=== PATIENT | female | born 1935 | race Caucasian/White ===

== ENCOUNTER → 2016-04-25 | Outpatient (CLI) | payer MEDICARE ==
[2016-04-25 17:49] LABS: ALBUMIN 3.7 GM/DL (3.2-5.2); ALBUMIN/GLOBULIN RATIO 1.28 (1.00-1.93); ALKALINE PHOSPHATASE 45 U/L (45-117); ALT/SGPT 28 U/L (12-78); ANION GAP 8 MEQ/L (8-16); AST/SGOT 23 U/L (15-37); BILIRUBIN,TOTAL 0.6 MG/DL (0.2-1.0); BLOOD UREA NITROGEN 19 MG/DL (7-18); CALCIUM LEVEL 9.4 MG/DL (8.8-10.2); CARBON DIOXIDE LEVEL 28 MEQ/L (21-32); CHLORIDE LEVEL 106 MEQ/L (98-107); CHOLESTEROL LEVEL 162 MG/DL (<200); CREATININE FOR GFR 0.71 MG/DL (0.55-1.02); GLOMERULAR FILTRATION RATE > 60.0 (>32); GLUCOSE, FASTING 91 MG/DL (83-110); POTASSIUM SERUM 4.8 MEQ/L (3.5-5.1); SODIUM LEVEL 142 MEQ/L (136-145); TOTAL PROTEIN 6.6 GM/DL (6.4-8.2); TRIGLYCERIDES LEVEL 74 MG/DL (<150)
== END | disposition home or self-care (01) ==
LOC: M WUC 12:22
PROVIDERS: ATTEND Physician Assistant
DX: I11.9 Hypertensive heart disease without heart failure (principal); E78.00 Pure hypercholesterolemia, unspecified

== ENCOUNTER → 2016-11-28 | Outpatient (CLI) | payer MEDICARE ==
[2016-11-28 18:34] LABS: ALBUMIN 3.5 GM/DL (3.2-5.2); ALBUMIN/GLOBULIN RATIO 1.21 (1.00-1.93); ALKALINE PHOSPHATASE 46 U/L (45-117); ALT/SGPT 28 U/L (12-78); ANION GAP 9 MEQ/L (8-16); AST/SGOT 19 U/L (15-37); BILIRUBIN,TOTAL 0.6 MG/DL (0.2-1.0); BLOOD UREA NITROGEN 16 MG/DL (7-18); CARBON DIOXIDE LEVEL 27 MEQ/L (21-32); CHLORIDE LEVEL 109 MEQ/L (98-107); CREATININE FOR GFR 0.63 MG/DL (0.55-1.02); GLOMERULAR FILTRATION RATE > 60.0 (>32); GLUCOSE, FASTING 111 MG/DL (83-110); POTASSIUM SERUM 4.6 MEQ/L (3.5-5.1); SODIUM LEVEL 145 MEQ/L (136-145); TOTAL PROTEIN 6.4 GM/DL (6.4-8.2)
== END ==
LOC: M WUC 13:02
PROVIDERS: ATTEND Physician Assistant
DX: I11.9 Hypertensive heart disease without heart failure (principal); E78.00 Pure hypercholesterolemia, unspecified

== ENCOUNTER → 2017-06-03 | Outpatient (CLI) | payer MEDICARE ==
[2017-06-03 10:46] LABS: ALBUMIN 3.8 GM/DL (3.2-5.2); ALBUMIN/GLOBULIN RATIO 1.46 (1.00-1.93); ALKALINE PHOSPHATASE 52 U/L (45-117); ALT/SGPT 28 U/L (12-78); ANION GAP 7 MEQ/L (8-16); AST/SGOT 19 U/L (7-37); BILIRUBIN,TOTAL 0.7 MG/DL (0.2-1.0); BLOOD UREA NITROGEN 18 MG/DL (7-18); CALCIUM LEVEL 9.2 MG/DL (8.8-10.2); CARBON DIOXIDE LEVEL 29 MEQ/L (21-32); CHLORIDE LEVEL 106 MEQ/L (98-107); CHOLESTEROL LEVEL 159 MG/DL (<200); CHOLESTEROL RISK RATIO 2.064 (<5); CREATININE FOR GFR 0.61 MG/DL (0.55-1.30); GLOMERULAR FILTRATION RATE > 60.0 (>32); GLUCOSE, FASTING 99 MG/DL (70-100); HDL CHOLESTEROL 77 MG/DL (>40); LDL CHOLESTEROL 69.6 MG/DL (<100); NON-HDL-C 82 MG/DL; POTASSIUM SERUM 4.1 MEQ/L (3.5-5.1); SODIUM LEVEL 142 MEQ/L (136-145); TOTAL PROTEIN 6.4 GM/DL (6.4-8.2); TRIGLYCERIDES LEVEL 62 MG/DL (<150)
== END ==
LOC: M WUC 08:24
DX: I11.9 Hypertensive heart disease without heart failure (principal); E78.00 Pure hypercholesterolemia, unspecified
CPT/HCPCS: 80053

== ENCOUNTER → 2018-05-01 | Outpatient (CLI) | payer MEDICARE ==
[2018-05-01 15:50] LABS: BASO # 0.1 10^3/uL (0.0-0.2); BASO % 0.6 % (0.0-1.0); EOS # 0.1 10^3/uL (0.0-0.50); EOS % 0.6 % (0.0-3.0); HEMATOCRIT 37.6 % (36.0-47.0); HEMOGLOBIN 12.4 g/dl (12.0-15.5); LYMPH # 2.6 10^3/uL (1.5-4.5); MEAN CORPUSCULAR HEMOGLOBIN 33.1 pg (27.0-33.0); MEAN CORPUSCULAR VOLUME 100.3 fl (80.0-96.0); MONO # 0.7 10^3/uL (0.0-0.8); MONO % 8.8 % (0.0-5.0); NEUTROPHILS # 4.7 10^3/uL (1.8-7.7); NEUTROPHILS % 57.8 % (36.0-66.0); PLATELET COUNT, AUTOMATED 182 10^3/uL (150-450); RED BLOOD COUNT 3.75 10^6/uL (4.00-5.40); WHITE BLOOD COUNT 8.2 10^3/uL (4.0-10.0)
[2018-05-01 16:10] LABS: BLOOD UREA NITROGEN 21 MG/DL (7-18); CARBON DIOXIDE LEVEL 26 MEQ/L (21-32); CHLORIDE LEVEL 107 MEQ/L (98-107); CREATININE FOR GFR 0.62 MG/DL (0.55-1.30); GLOMERULAR FILTRATION RATE > 60.0 (>32); GLUCOSE, FASTING 148 MG/DL (70-100); POTASSIUM SERUM 4.2 MEQ/L (3.5-5.1); SODIUM LEVEL 141 MEQ/L (136-145)
== END ==
LOC: M WUC 13:41
PROVIDERS: ATTEND Internal Medicine Cardiovascular Disease
DX: I35.0 Nonrheumatic aortic (valve) stenosis (principal)

== ENCOUNTER → 2018-08-01 | Outpatient (REF) | payer MEDICARE ==
[2018-08-01 14:19] LABS: HEMATOCRIT 32.9 % (36.0-47.0); HEMOGLOBIN 10.3 g/dl (12.0-15.5); MEAN CORPUSCULAR HEMOGLOBIN 32.1 pg (27.0-33.0); MEAN CORPUSCULAR HGB CONC 31.3 g/dl (32.0-36.5); MEAN CORPUSCULAR VOLUME 102.5 fl (80.0-96.0); PLATELET COUNT, AUTOMATED 204 10^3/uL (150-450); RED BLOOD COUNT 3.21 10^6/uL (4.00-5.40); WHITE BLOOD COUNT 4.9 10^3/uL (4.0-10.0)
[2018-08-01 14:35] LABS: BLOOD UREA NITROGEN 15 MG/DL (7-18); CALCIUM LEVEL 8.9 MG/DL (8.8-10.2); CARBON DIOXIDE LEVEL 26 MEQ/L (21-32); CHLORIDE LEVEL 110 MEQ/L (98-107); CREATININE FOR GFR 0.59 MG/DL (0.55-1.30); GLOMERULAR FILTRATION RATE > 60.0 (>32); GLUCOSE, FASTING 145 MG/DL (70-100); POTASSIUM SERUM 4.1 MEQ/L (3.5-5.1); SODIUM LEVEL 142 MEQ/L (136-145)
== END ==
LOC: M LAB REF 13:02
PROVIDERS: ATTEND Family Medicine
DX: I25.10 Atherosclerotic heart disease of native coronary artery without angina pectoris (principal); Z95.1 Presence of aortocoronary bypass graft; I35.2 Nonrheumatic aortic (valve) stenosis with insufficiency

== ENCOUNTER → 2019-10-04 | Outpatient (CLI) | payer MEDICARE ==
[2019-10-04 13:48] LABS: ALBUMIN 3.6 GM/DL (3.2-5.2); ALT/SGPT 28 U/L (12-78); BILIRUBIN,TOTAL 0.5 MG/DL (0.2-1.0); BLOOD UREA NITROGEN 22 MG/DL (7-18); CALCIUM LEVEL 9.1 MG/DL (8.8-10.2); CARBON DIOXIDE LEVEL 26 MEQ/L (21-32); CHLORIDE LEVEL 111 MEQ/L (98-107); CHOLESTEROL LEVEL 148 MG/DL (<200); CHOLESTEROL RISK RATIO 2.387 (<5); CREATININE FOR GFR 0.63 MG/DL (0.55-1.30); GLOMERULAR FILTRATION RATE > 60.0 (>32); GLUCOSE, FASTING 101 MG/DL (70-100); HDL CHOLESTEROL 62 MG/DL (>40); LDL CHOLESTEROL 74 MG/DL (<100); NON-HDL-C 86 MG/DL; POTASSIUM SERUM 4.3 MEQ/L (3.5-5.1); SODIUM LEVEL 143 MEQ/L (136-145); TOTAL PROTEIN 6.3 GM/DL (6.4-8.2); TRIGLYCERIDES LEVEL 60 MG/DL (<150)
== END ==
LOC: M WUC 09:25
PROVIDERS: ATTEND Physician Assistant
DX: I25.10 Atherosclerotic heart disease of native coronary artery without angina pectoris (principal); I11.9 Hypertensive heart disease without heart failure; E78.00 Pure hypercholesterolemia, unspecified

== ENCOUNTER → 2020-03-04 | Outpatient (CLI) | payer SELFPAY | LOC: M LABCAHC 14:20 | PROVIDERS: ATTEND Pediatrics | DX: Z11.59 Encounter for screening for other viral diseases (principal) ==

== ENCOUNTER → 2021-05-20 | Outpatient (CLI) | payer MEDICARE ==
[2021-05-20 13:31] LABS: BLOOD UREA NITROGEN 20 MG/DL (7-18); CARBON DIOXIDE LEVEL 26 MEQ/L (21-32); CHLORIDE LEVEL 109 MEQ/L (98-107); CREATININE FOR GFR 0.92 MG/DL (0.55-1.30); GLOMERULAR FILTRATION RATE > 60.0 (>32); GLUCOSE, FASTING 164 MG/DL (70-100); POTASSIUM SERUM 4.6 MEQ/L (3.5-5.1); SODIUM LEVEL 144 MEQ/L (136-145)
== END ==
LOC: M WUC 09:57
PROVIDERS: ATTEND Physician Assistant
DX: I50.32 Chronic diastolic (congestive) heart failure (principal); E83.42 Hypomagnesemia

== ENCOUNTER → 2021-08-13 | Outpatient (REF) | payer MEDICARE ==
[2021-08-13 12:27] LABS: BLOOD UREA NITROGEN 15 MG/DL (7-18); CALCIUM LEVEL 9.8 MG/DL (8.8-10.2); CARBON DIOXIDE LEVEL 26 MEQ/L (21-32); CHLORIDE LEVEL 109 MEQ/L (98-107); CREATININE FOR GFR 0.79 MG/DL (0.55-1.30); GLOMERULAR FILTRATION RATE > 60.0 (>32); GLUCOSE, FASTING 130 MG/DL (70-100); POTASSIUM SERUM 4.9 MEQ/L (3.5-5.1); SODIUM LEVEL 143 MEQ/L (136-145)
== END ==
LOC: M WUC 11:30 → M LAB REF 11:30
PROVIDERS: ATTEND Physician Assistant
DX: I50.32 Chronic diastolic (congestive) heart failure (principal); E83.42 Hypomagnesemia

== ENCOUNTER 2022-08-16 00:31 | Emergency (ER) | payer MEDICARE ==
[~2022-08-16] VITALS: Ht 149.9 cm; Wt 61.0 kg
[2022-08-16 01:23] LABS: BASO % 0.5 % (0.0-1.0); EOS % 0.4 % (0.0-3.0); HEMATOCRIT 39.7 % (36.0-47.0); HEMOGLOBIN 13.3 g/dl (12.0-15.5); LYMPH # 2.7 10^3/uL (1.5-5.0); LYMPH % 33.8 % (24.0-44.0); MEAN CORPUSCULAR HEMOGLOBIN 32.5 pg (27.0-33.0); MEAN CORPUSCULAR HGB CONC 33.5 g/dl (32.0-36.5); MEAN CORPUSCULAR VOLUME 97.1 fl (80.0-96.0); MONO # 0.7 10^3/uL (0.0-0.8); MONO % 8.7 % (2.0-8.0); NEUTROPHILS # 4.4 10^3/uL (1.5-8.5); NEUTROPHILS % 56.2 % (36.0-66.0); PLATELET COUNT, AUTOMATED 208 10^3/uL (150-450); RED BLOOD COUNT 4.09 10^6/uL (4.00-5.40); WHITE BLOOD COUNT 7.8 10^3/uL (4.0-10.0)
[2022-08-16] MEDS ORDERED: ACETAMINOPHEN 1000MG 100ML IV BAG IV ONE (01:55)
[2022-08-16 01:56] LABS: LIPASE 26 U/L (12-53)
[2022-08-16 01:58] LABS: ALBUMIN 3.6 G/DL (3.2-5.2); ALKALINE PHOSPHATASE 75 U/L (46-116); ALT/SGPT 21 U/L (7.0-40); AST/SGOT 24 U/L (<34); BILIRUBIN,DIRECT 0.3 MG/DL (<0.4); BILIRUBIN,TOTAL 0.7 MG/DL (0.3-1.2); BLOOD UREA NITROGEN 21 MG/DL (9-23); CALCIUM LEVEL 9.6 MG/DL (8.3-10.6); CARBON DIOXIDE LEVEL 23 MMOL/L (20-31); CHLORIDE LEVEL 108 MMOL/L (98-107); CK-MB VALUE MASS 1.2 NG/ML (<3.6); CPK CREATINE PHOSPHOKINASE 72 U/L (34-145); CREATININE FOR GFR 0.92 MG/DL (0.55-1.30); GLOMERULAR FILTRATION RATE > 60.0 (>32); GLUCOSE, FASTING 110 MG/DL (74-106); MB/CK RELATIVE INDEX 1.66 (< OR =4); POTASSIUM SERUM 3.4 MMOL/L (3.5-5.1); SODIUM LEVEL 140 MMOL/L (136-145); TOTAL PROTEIN 6.1 G/DL (5.7-8.2)
[2022-08-16] MEDS ORDERED: ISOVUE-370 76% 100ML VIAL As Ordered ONE (02:11)
[2022-08-16 02:51] LABS: CK-MB VALUE MASS 1.2 NG/ML (<3.6)
[2022-08-16 02:53] LABS: MB/CK RELATIVE INDEX 1.64 (< OR =4)
[2022-08-16 04:00] VITALS: BP 149/68
== END 2022-08-16 04:52 | disposition home or self-care (01) ==
LOC: M ED 00:31 → EDBD 00:31 → M ED 04:52
DX: K43.9 Ventral hernia without obstruction or gangrene (principal); I25.10 Atherosclerotic heart disease of native coronary artery without angina pectoris; I48.91 Unspecified atrial fibrillation; Z88.0 Allergy status to penicillin
CPT/HCPCS: 71045; 74177; 80048; 80076; 81001; 82550; 82553; 83690; 84484; 85025; 93005; 93041; 94760; 96374; 99285; J0131; Q9967

== ENCOUNTER 2022-08-27 00:16 | Observation (INO) | payer MEDICARE ==
[~2022-08-27] VITALS: Ht 156.2 cm; Wt 66.9 kg
[2022-08-27 01:14] LABS: HEMATOCRIT 41.2 % (36.0-47.0); HEMOGLOBIN 13.9 g/dl (12.0-15.5); MEAN CORPUSCULAR HGB CONC 33.7 g/dl (32.0-36.5); MEAN CORPUSCULAR VOLUME 97.9 fl (80.0-96.0); PLATELET COUNT, AUTOMATED 236 10^3/uL (150-450); RED BLOOD COUNT 4.21 10^6/uL (4.00-5.40)
[2022-08-27 01:28] LABS: ETHYL ALCOHOL (ETHANOL) 0.005 % (0.000-0.010)
[2022-08-27 01:30] LABS: ACETAMINOPHEN LEVEL < 2.0 UG/ML (10.0-20.0); ALBUMIN 3.6 G/DL (3.2-5.2); ALKALINE PHOSPHATASE 70 U/L (46-116); ALT/SGPT 20 U/L (7.0-40); AST/SGOT 18 U/L (<34); BILIRUBIN,DIRECT 0.3 MG/DL (<0.4); BILIRUBIN,TOTAL 0.7 MG/DL (0.3-1.2); BLOOD UREA NITROGEN 12 MG/DL (9-23); CALCIUM LEVEL 9.4 MG/DL (8.3-10.6); CARBON DIOXIDE LEVEL 24 MMOL/L (20-31); CHLORIDE LEVEL 110 MMOL/L (98-107); CREATININE FOR GFR 0.75 MG/DL (0.55-1.30); GLOMERULAR FILTRATION RATE > 60.0 (>32); GLUCOSE, FASTING 126 MG/DL (74-106); POTASSIUM SERUM 3.9 MMOL/L (3.5-5.1); SALICYLATE LEVEL < 3.0 MG/DL (<30); SODIUM LEVEL 143 MMOL/L (136-145)
[2022-08-27 01:32] LABS: THYROID STIMULATING HORMONE 1.481 uIU/ML (0.55-4.78)
[2022-08-27] MEDS ORDERED: RAMI1CAP24 PO (08:15)
[2022-08-27] MEDS ORDERED: ASPI81CH33 PO (08:15)
[2022-08-27] MEDS ORDERED: TORS5TAB2 PO (08:15)
[2022-08-27] MEDS ORDERED: ATOR1TAB19 PO (08:15)
[2022-08-27] MEDS ORDERED: FLUO10CA18 PO (08:15)
[2022-08-27] MEDS ORDERED: HOME MED LIST COMPLETE! XX SCH (08:20)
[2022-08-27] MEDS ORDERED: ramipriL 5 MG CAP PO SCH (09:00)
[2022-08-27] MEDS ORDERED: ASPIRIN 81MG CHEW TABLET PO SCH (09:00)
[2022-08-27] MEDS ORDERED: TORSEMIDE 10 MG TABLET PO SCH (09:00)
[2022-08-27] MEDS ORDERED: FLUoxetine 10 MG CAP PO SCH (09:00)
[2022-08-27 11:31] LABS: AMPHETAMINES LEVEL URINE NEGATIVE (NEGATIVE); BARBITURATES URINE NEGATIVE (NEGATIVE); BENZODIAZEPINES URINE NEGATIVE (NEGATIVE)
[2022-08-27 11:32] LABS: CANNABINOIDS URINE NEGATIVE (NEGATIVE); COCAINE METABOLITE URINE NEGATIVE (NEGATIVE); METHADONE URINE NEGATIVE (NEGATIVE); OPIATES URINE NEGATIVE (NEGATIVE); PHENCYCLIDINE URINE NEGATIVE (NEGATIVE)
[2022-08-27 17:35] VITALS: BP 140/55; TEMP 97.9; O2SAT 99
[2022-08-27] MEDS: ATORVASTATIN 10 MG TAB PO SCH (20:31)
[2022-08-27] MEDS: NYSTATIN 100,000 UNITS/GM TOPICAL PWD 15GM TOP SCH (20:32)
[2022-08-27 20:40] VITALS: BP 139/56; TEMP 97.9; O2SAT 97
[2022-08-27] MEDS ORDERED: ATORVASTATIN 10 MG TAB PO SCH (21:00)
[2022-08-28 05:10] VITALS: BP 136/62; TEMP 97.9; O2SAT 97
[2022-08-28 06:25] LABS: HEMATOCRIT 37.3 % (36.0-47.0); HEMOGLOBIN 12.3 g/dl (12.0-15.5); MEAN CORPUSCULAR HEMOGLOBIN 32.4 pg (27.0-33.0); MEAN CORPUSCULAR VOLUME 98.2 fl (80.0-96.0); PLATELET COUNT, AUTOMATED 203 10^3/uL (150-450)
[2022-08-28 06:58] LABS: BLOOD UREA NITROGEN 13 MG/DL (9-23); CALCIUM LEVEL 8.8 MG/DL (8.3-10.6); CARBON DIOXIDE LEVEL 27 MMOL/L (20-31); CHLORIDE LEVEL 111 MMOL/L (98-107); CREATININE FOR GFR 0.65 MG/DL (0.55-1.30); GLOMERULAR FILTRATION RATE > 60.0 (>32); GLUCOSE, FASTING 100 MG/DL (74-106); POTASSIUM SERUM 3.8 MMOL/L (3.5-5.1); SODIUM LEVEL 145 MMOL/L (136-145)
[2022-08-28] MEDS: TORSEMIDE 10 MG TABLET PO SCH ×2 (09:00→09:19)
[2022-08-28] MEDS: FLUoxetine 10 MG CAP PO SCH ×2 (09:00→09:18)
[2022-08-28] MEDS: ENOXAPARIN 40MG/0.4ML SYRINGE (J1650 PER 10MG) SC SCH (09:17)
[2022-08-28] MEDS: ASPIRIN 81MG CHEW TABLET PO SCH (09:18)
[2022-08-28] MEDS: NYSTATIN 100,000 UNITS/GM TOPICAL PWD 15GM TOP SCH ×2 (09:19→21:10)
[2022-08-28] MEDS: ramipriL 5 MG CAP PO SCH (09:19)
[2022-08-28 10:35] LABS: FOLATE 14.29 NG/ML (>5.4); VITAMIN B12 LEVEL 465 PG/ML (211-911)
[2022-08-28 10:36] LABS: FREE T4 0.92 NG/DL (0.89-1.76)
[2022-08-28 14:00] VITALS: BP 134/66; TEMP 98.2; O2SAT 99
[2022-08-28] MEDS: LORazepam 1 MG TAB PO PRN (14:28)
[2022-08-28] MEDS: ATORVASTATIN 10 MG TAB PO SCH (21:09)
[2022-08-28 21:20] VITALS: BP 151/76; TEMP 97.9; O2SAT 97
[2022-08-29 05:50] VITALS: BP 148/72; TEMP 97.9; O2SAT 98
[2022-08-29 06:17] LABS: HEMATOCRIT 38.5 % (36.0-47.0); HEMOGLOBIN 12.4 g/dl (12.0-15.5); MEAN CORPUSCULAR HEMOGLOBIN 32.2 pg (27.0-33.0); MEAN CORPUSCULAR HGB CONC 32.2 g/dl (32.0-36.5); PLATELET COUNT, AUTOMATED 190 10^3/uL (150-450); RED BLOOD COUNT 3.85 10^6/uL (4.00-5.40); WHITE BLOOD COUNT 4.9 10^3/uL (4.0-10.0)
[2022-08-29 06:39] LABS: BLOOD UREA NITROGEN 12 MG/DL (9-23); CALCIUM LEVEL 8.6 MG/DL (8.3-10.6); CARBON DIOXIDE LEVEL 27 MMOL/L (20-31); CHLORIDE LEVEL 108 MMOL/L (98-107); CREATININE FOR GFR 0.66 MG/DL (0.55-1.30); GLOMERULAR FILTRATION RATE > 60.0 (>32); GLUCOSE, FASTING 95 MG/DL (74-106); SODIUM LEVEL 141 MMOL/L (136-145)
[2022-08-29] MEDS: ASPIRIN 81MG CHEW TABLET PO SCH (08:31)
[2022-08-29] MEDS: TORSEMIDE 10 MG TABLET PO SCH (08:31)
[2022-08-29] MEDS: FLUoxetine 10 MG CAP PO SCH (08:31)
[2022-08-29] MEDS: ENOXAPARIN 40MG/0.4ML SYRINGE (J1650 PER 10MG) SC SCH (08:31)
[2022-08-29] MEDS: NYSTATIN 100,000 UNITS/GM TOPICAL PWD 15GM TOP SCH ×2 (08:32→19:54)
[2022-08-29] MEDS: ramipriL 5 MG CAP PO SCH (08:33)
[2022-08-29 14:00] VITALS: BP 130/58; TEMP 97.5; O2SAT 98
[2022-08-29] MEDS: LORazepam 1 MG TAB PO PRN (19:53)
[2022-08-29] MEDS: ATORVASTATIN 10 MG TAB PO SCH (19:54)
[2022-08-29 21:00] VITALS: BP 135/65; TEMP 97.9; O2SAT 98
[2022-08-30] MEDS: LORazepam 1 MG TAB PO PRN ×2 (04:15→19:55)
[2022-08-30 05:40] VITALS: BP 112/57; TEMP 97.7; O2SAT 97
[2022-08-30 06:18] LABS: HEMATOCRIT 36.7 % (36.0-47.0); HEMOGLOBIN 12.1 g/dl (12.0-15.5); MEAN CORPUSCULAR HEMOGLOBIN 32.4 pg (27.0-33.0); MEAN CORPUSCULAR VOLUME 98.4 fl (80.0-96.0); PLATELET COUNT, AUTOMATED 176 10^3/uL (150-450); RED BLOOD COUNT 3.73 10^6/uL (4.00-5.40); WHITE BLOOD COUNT 4.7 10^3/uL (4.0-10.0)
[2022-08-30 06:52] LABS: BLOOD UREA NITROGEN 16 MG/DL (9-23); CALCIUM LEVEL 8.6 MG/DL (8.3-10.6); CARBON DIOXIDE LEVEL 28 MMOL/L (20-31); CHLORIDE LEVEL 107 MMOL/L (98-107); CREATININE FOR GFR 0.72 MG/DL (0.55-1.30); GLOMERULAR FILTRATION RATE > 60.0 (>32); GLUCOSE, FASTING 96 MG/DL (74-106); POTASSIUM SERUM 3.7 MMOL/L (3.5-5.1); SODIUM LEVEL 142 MMOL/L (136-145)
[2022-08-30] MEDS: ENOXAPARIN 40MG/0.4ML SYRINGE (J1650 PER 10MG) SC SCH (08:48)
[2022-08-30] MEDS: NYSTATIN 100,000 UNITS/GM TOPICAL PWD 15GM TOP SCH ×2 (08:48→19:56)
[2022-08-30] MEDS: TORSEMIDE 10 MG TABLET PO SCH (08:48)
[2022-08-30] MEDS: FLUoxetine 10 MG CAP PO SCH (08:48)
[2022-08-30] MEDS: ASPIRIN 81MG CHEW TABLET PO SCH (08:50)
[2022-08-30] MEDS: ramipriL 5 MG CAP PO SCH (09:00)
[2022-08-30 14:00] VITALS: BP 106/51; TEMP 97.7; O2SAT 97
[2022-08-30] MEDS: ATORVASTATIN 10 MG TAB PO SCH ×2 (19:55→19:58)
[2022-08-30 20:00] VITALS: BP 144/63; TEMP 98.1; O2SAT 95
[2022-08-31 06:00] VITALS: BP 146/64; TEMP 97.7; O2SAT 97
[2022-08-31 06:43] LABS: HEMATOCRIT 39.5 % (36.0-47.0); HEMOGLOBIN 13.2 g/dl (12.0-15.5); MEAN CORPUSCULAR HEMOGLOBIN 32.9 pg (27.0-33.0); MEAN CORPUSCULAR HGB CONC 33.4 g/dl (32.0-36.5); MEAN CORPUSCULAR VOLUME 98.5 fl (80.0-96.0); PLATELET COUNT, AUTOMATED 195 10^3/uL (150-450); RED BLOOD COUNT 4.01 10^6/uL (4.00-5.40); WHITE BLOOD COUNT 5.4 10^3/uL (4.0-10.0)
[2022-08-31 07:05] LABS: BLOOD UREA NITROGEN 17 MG/DL (9-23); CALCIUM LEVEL 9.2 MG/DL (8.3-10.6); CARBON DIOXIDE LEVEL 28 MMOL/L (20-31); CHLORIDE LEVEL 107 MMOL/L (98-107); CREATININE FOR GFR 0.68 MG/DL (0.55-1.30); GLOMERULAR FILTRATION RATE > 60.0 (>32); GLUCOSE, FASTING 90 MG/DL (74-106); POTASSIUM SERUM 4.2 MMOL/L (3.5-5.1); SODIUM LEVEL 142 MMOL/L (136-145)
[2022-08-31] MEDS: TORSEMIDE 10 MG TABLET PO SCH ×2 (07:39→10:20)
[2022-08-31] MEDS: FLUoxetine 10 MG CAP PO SCH ×2 (07:39→10:21)
[2022-08-31] MEDS: ENOXAPARIN 40MG/0.4ML SYRINGE (J1650 PER 10MG) SC SCH (07:39)
[2022-08-31] MEDS: ASPIRIN 81MG CHEW TABLET PO SCH ×2 (07:39→10:20)
[2022-08-31] MEDS: NYSTATIN 100,000 UNITS/GM TOPICAL PWD 15GM TOP SCH ×2 (07:40→20:48)
[2022-08-31] MEDS: ramipriL 5 MG CAP PO SCH ×2 (07:41→10:20)
[2022-08-31] MEDS: LORazepam 1 MG TAB PO PRN ×2 (10:01→20:47)
[2022-08-31 14:00] VITALS: BP 144/73; TEMP 98.1; O2SAT 97
[2022-08-31] MEDS: ATORVASTATIN 10 MG TAB PO SCH (20:47)
[2022-09-01 05:38] VITALS: BP 140/72; TEMP 98.1; O2SAT 99
[2022-09-01 05:54] LABS: HEMATOCRIT 37.5 % (36.0-47.0); HEMOGLOBIN 12.7 g/dl (12.0-15.5); MEAN CORPUSCULAR HEMOGLOBIN 33.3 pg (27.0-33.0); MEAN CORPUSCULAR HGB CONC 33.9 g/dl (32.0-36.5); MEAN CORPUSCULAR VOLUME 98.4 fl (80.0-96.0); PLATELET COUNT, AUTOMATED 179 10^3/uL (150-450); RED BLOOD COUNT 3.81 10^6/uL (4.00-5.40); WHITE BLOOD COUNT 4.8 10^3/uL (4.0-10.0)
[2022-09-01 06:17] LABS: BLOOD UREA NITROGEN 17 MG/DL (9-23); CALCIUM LEVEL 9.2 MG/DL (8.3-10.6); CARBON DIOXIDE LEVEL 27 MMOL/L (20-31); CHLORIDE LEVEL 108 MMOL/L (98-107); CREATININE FOR GFR 0.67 MG/DL (0.55-1.30); GLOMERULAR FILTRATION RATE > 60.0 (>32); GLUCOSE, FASTING 87 MG/DL (74-106); POTASSIUM SERUM 3.7 MMOL/L (3.5-5.1); SODIUM LEVEL 141 MMOL/L (136-145)
[2022-09-01] MEDS: LORazepam 1 MG TAB PO PRN (06:37)
[2022-09-01] MEDS: ASPIRIN 81MG CHEW TABLET PO SCH (08:16)
[2022-09-01] MEDS: ramipriL 5 MG CAP PO SCH (08:16)
[2022-09-01] MEDS: TORSEMIDE 10 MG TABLET PO SCH (08:16)
[2022-09-01] MEDS: FLUoxetine 10 MG CAP PO SCH (08:16)
[2022-09-01] MEDS: NYSTATIN 100,000 UNITS/GM TOPICAL PWD 15GM TOP SCH ×2 (08:17→20:26)
[2022-09-01] MEDS: ENOXAPARIN 40MG/0.4ML SYRINGE (J1650 PER 10MG) SC SCH (08:17)
[2022-09-01] MEDS: ATORVASTATIN 10 MG TAB PO SCH (20:26)
[2022-09-02 06:00] VITALS: BP 142/72; TEMP 97.9; O2SAT 100
[2022-09-02] MEDS: TORSEMIDE 10 MG TABLET PO SCH (08:29)
[2022-09-02] MEDS: FLUoxetine 10 MG CAP PO SCH (08:30)
[2022-09-02] MEDS: ASPIRIN 81MG CHEW TABLET PO SCH (08:30)
[2022-09-02] MEDS: ramipriL 5 MG CAP PO SCH (08:30)
[2022-09-02] MEDS: NYSTATIN 100,000 UNITS/GM TOPICAL PWD 15GM TOP SCH ×2 (08:31→21:29)
[2022-09-02] MEDS: ENOXAPARIN 40MG/0.4ML SYRINGE (J1650 PER 10MG) SC SCH (08:31)
[2022-09-02 10:11] LABS: HEMATOCRIT 39.8 % (36.0-47.0); HEMOGLOBIN 13.2 g/dl (12.0-15.5); MEAN CORPUSCULAR HEMOGLOBIN 32.7 pg (27.0-33.0); MEAN CORPUSCULAR HGB CONC 33.2 g/dl (32.0-36.5); MEAN CORPUSCULAR VOLUME 98.5 fl (80.0-96.0); PLATELET COUNT, AUTOMATED 201 10^3/uL (150-450); RED BLOOD COUNT 4.04 10^6/uL (4.00-5.40); WHITE BLOOD COUNT 6.5 10^3/uL (4.0-10.0)
[2022-09-02 10:51] LABS: BLOOD UREA NITROGEN 19 MG/DL (9-23); CALCIUM LEVEL 9.1 MG/DL (8.3-10.6); CARBON DIOXIDE LEVEL 27 MMOL/L (20-31); CHLORIDE LEVEL 108 MMOL/L (98-107); CREATININE FOR GFR 0.68 MG/DL (0.55-1.30); GLOMERULAR FILTRATION RATE > 60.0 (>32); GLUCOSE, FASTING 103 MG/DL (74-106); POTASSIUM SERUM 3.9 MMOL/L (3.5-5.1); SODIUM LEVEL 143 MMOL/L (136-145)
[2022-09-02] MEDS: LORazepam 1 MG TAB PO PRN (17:40)
[2022-09-02] MEDS: ATORVASTATIN 10 MG TAB PO SCH (21:28)
[2022-09-03 05:55] LABS: HEMATOCRIT 40.7 % (36.0-47.0); HEMOGLOBIN 13.3 g/dl (12.0-15.5); MEAN CORPUSCULAR HEMOGLOBIN 32.8 pg (27.0-33.0); MEAN CORPUSCULAR HGB CONC 32.7 g/dl (32.0-36.5); MEAN CORPUSCULAR VOLUME 100.2 fl (80.0-96.0); PLATELET COUNT, AUTOMATED 176 10^3/uL (150-450); RED BLOOD COUNT 4.06 10^6/uL (4.00-5.40); WHITE BLOOD COUNT 6.1 10^3/uL (4.0-10.0)
[2022-09-03 06:26] LABS: BLOOD UREA NITROGEN 19 MG/DL (9-23); CALCIUM LEVEL 9.4 MG/DL (8.3-10.6); CARBON DIOXIDE LEVEL 29 MMOL/L (20-31); CHLORIDE LEVEL 108 MMOL/L (98-107); CREATININE FOR GFR 0.72 MG/DL (0.55-1.30); GLOMERULAR FILTRATION RATE > 60.0 (>32); GLUCOSE, FASTING 103 MG/DL (74-106); POTASSIUM SERUM 4.1 MMOL/L (3.5-5.1); SODIUM LEVEL 144 MMOL/L (136-145)
[2022-09-03 06:41] VITALS: BP 125/71; TEMP 97.9; O2SAT 98
[2022-09-03] MEDS: ramipriL 5 MG CAP PO SCH (08:38)
[2022-09-03] MEDS: NYSTATIN 100,000 UNITS/GM TOPICAL PWD 15GM TOP SCH ×2 (08:38→20:41)
[2022-09-03] MEDS: TORSEMIDE 10 MG TABLET PO SCH (08:38)
[2022-09-03] MEDS: FLUoxetine 10 MG CAP PO SCH (08:38)
[2022-09-03] MEDS: ASPIRIN 81MG CHEW TABLET PO SCH (08:38)
[2022-09-03] MEDS: LORazepam 1 MG TAB PO PRN ×2 (08:39→20:41)
[2022-09-03] MEDS: ENOXAPARIN 40MG/0.4ML SYRINGE (J1650 PER 10MG) SC SCH (09:00)
[2022-09-03] MEDS: ATORVASTATIN 10 MG TAB PO SCH (20:41)
[2022-09-04 05:38] VITALS: BP 130/81; TEMP 97.9; O2SAT 99
[2022-09-04 06:28] LABS: HEMATOCRIT 40.9 % (36.0-47.0); HEMOGLOBIN 13.6 g/dl (12.0-15.5); MEAN CORPUSCULAR HEMOGLOBIN 32.4 pg (27.0-33.0); MEAN CORPUSCULAR HGB CONC 33.3 g/dl (32.0-36.5); MEAN CORPUSCULAR VOLUME 97.4 fl (80.0-96.0); PLATELET COUNT, AUTOMATED 199 10^3/uL (150-450); WHITE BLOOD COUNT 6.2 10^3/uL (4.0-10.0)
[2022-09-04 06:48] LABS: BLOOD UREA NITROGEN 21 MG/DL (9-23); CALCIUM LEVEL 9.7 MG/DL (8.3-10.6); CARBON DIOXIDE LEVEL 28 MMOL/L (20-31); CHLORIDE LEVEL 104 MMOL/L (98-107); CREATININE FOR GFR 0.71 MG/DL (0.55-1.30); GLOMERULAR FILTRATION RATE > 60.0 (>32); GLUCOSE, FASTING 92 MG/DL (74-106); POTASSIUM SERUM 4.2 MMOL/L (3.5-5.1); SODIUM LEVEL 138 MMOL/L (136-145)
[2022-09-04] MEDS: ramipriL 5 MG CAP PO SCH (08:03)
[2022-09-04] MEDS: ASPIRIN 81MG CHEW TABLET PO SCH (08:03)
[2022-09-04] MEDS: TORSEMIDE 10 MG TABLET PO SCH (08:03)
[2022-09-04] MEDS: LORazepam 1 MG TAB PO PRN (08:04)
[2022-09-04] MEDS: FLUoxetine 10 MG CAP PO SCH (08:04)
[2022-09-04] MEDS: ENOXAPARIN 40MG/0.4ML SYRINGE (J1650 PER 10MG) SC SCH (08:04)
[2022-09-04] MEDS: NYSTATIN 100,000 UNITS/GM TOPICAL PWD 15GM TOP SCH ×2 (08:04→21:00)
[2022-09-04] MEDS: ATORVASTATIN 10 MG TAB PO SCH (21:00)
[2022-09-05 05:53] VITALS: BP 133/61; TEMP 97.9; O2SAT 94
[2022-09-05] MEDS: FLUoxetine 10 MG CAP PO SCH (09:00)
[2022-09-05] MEDS: ramipriL 5 MG CAP PO SCH (09:00)
[2022-09-05] MEDS: ASPIRIN 81MG CHEW TABLET PO SCH (09:00)
[2022-09-05] MEDS: TORSEMIDE 10 MG TABLET PO SCH (09:00)
[2022-09-05] MEDS: ENOXAPARIN 40MG/0.4ML SYRINGE (J1650 PER 10MG) SC SCH (09:00)
[2022-09-05] MEDS: NYSTATIN 100,000 UNITS/GM TOPICAL PWD 15GM TOP SCH ×2 (09:00→21:00)
[2022-09-05] MEDS: ATORVASTATIN 10 MG TAB PO SCH (21:00)
[2022-09-06] MEDS: LORazepam 1 MG TAB PO PRN ×2 (02:13→20:03)
[2022-09-06 06:48] VITALS: BP 125/59; TEMP 97.9; O2SAT 96
[2022-09-06] MEDS: ASPIRIN 81MG CHEW TABLET PO SCH (09:00)
[2022-09-06] MEDS: ramipriL 5 MG CAP PO SCH (09:00)
[2022-09-06] MEDS: FLUoxetine 10 MG CAP PO SCH (09:00)
[2022-09-06] MEDS: TORSEMIDE 10 MG TABLET PO SCH (09:00)
[2022-09-06] MEDS: NYSTATIN 100,000 UNITS/GM TOPICAL PWD 15GM TOP SCH ×2 (09:01→20:03)
[2022-09-06] MEDS: ENOXAPARIN 40MG/0.4ML SYRINGE (J1650 PER 10MG) SC SCH (09:01)
[2022-09-06] MEDS: ATORVASTATIN 10 MG TAB PO SCH (20:03)
[2022-09-07 06:28] VITALS: BP 135/74; TEMP 97.9; O2SAT 98
[2022-09-07] MEDS: ENOXAPARIN 40MG/0.4ML SYRINGE (J1650 PER 10MG) SC SCH (08:39)
[2022-09-07] MEDS: FLUoxetine 10 MG CAP PO SCH (08:40)
[2022-09-07] MEDS: LORazepam 1 MG TAB PO PRN (08:40)
[2022-09-07] MEDS: TORSEMIDE 10 MG TABLET PO SCH (08:40)
[2022-09-07] MEDS: ASPIRIN 81MG CHEW TABLET PO SCH (08:40)
[2022-09-07] MEDS: ramipriL 5 MG CAP PO SCH (08:41)
[2022-09-07] MEDS: NYSTATIN 100,000 UNITS/GM TOPICAL PWD 15GM TOP SCH ×2 (08:41→20:05)
[2022-09-07] MEDS: ATORVASTATIN 10 MG TAB PO SCH (20:05)
[2022-09-08 05:25] VITALS: BP 130/72; TEMP 97.7; O2SAT 99
[2022-09-08] MEDS: ENOXAPARIN 40MG/0.4ML SYRINGE (J1650 PER 10MG) SC SCH (09:07)
[2022-09-08] MEDS: ASPIRIN 81MG CHEW TABLET PO SCH (09:08)
[2022-09-08] MEDS: FLUoxetine 10 MG CAP PO SCH (09:08)
[2022-09-08] MEDS: TORSEMIDE 10 MG TABLET PO SCH (09:08)
[2022-09-08] MEDS: ramipriL 5 MG CAP PO SCH (09:09)
[2022-09-08] MEDS: NYSTATIN 100,000 UNITS/GM TOPICAL PWD 15GM TOP SCH ×2 (09:09→20:03)
[2022-09-08] MEDS ORDERED: BISACODYL 10MG SUPP PR PRN (19:55)
[2022-09-08] MEDS: ATORVASTATIN 10 MG TAB PO SCH (20:03)
[2022-09-08] MEDS: DOCUSATE SODIUM 100MG CAPSULE PO SCH (20:03)
[2022-09-08] MEDS ORDERED: TEMAZEPAM 7.5 MG CAP PO ONE (21:45)
[2022-09-09 06:21] VITALS: BP 132/68; TEMP 97.7; O2SAT 97
[2022-09-09] MEDS: ramipriL 5 MG CAP PO SCH (08:15)
[2022-09-09] MEDS: ASPIRIN 81MG CHEW TABLET PO SCH (08:15)
[2022-09-09] MEDS: TORSEMIDE 10 MG TABLET PO SCH (08:15)
[2022-09-09] MEDS: FLUoxetine 10 MG CAP PO SCH (08:15)
[2022-09-09] MEDS: DOCUSATE SODIUM 100MG CAPSULE PO SCH ×3 (08:15→19:40)
[2022-09-09] MEDS: MIRALAX *UNIT DOSE* 17GM PACKET PO SCH (08:15)
[2022-09-09] MEDS: ENOXAPARIN 40MG/0.4ML SYRINGE (J1650 PER 10MG) SC SCH (08:16)
[2022-09-09] MEDS: NYSTATIN 100,000 UNITS/GM TOPICAL PWD 15GM TOP SCH ×2 (08:16→19:41)
[2022-09-09] MEDS: RAMELTEON 8 MG TAB (ROZEREM) PO PRN (19:40)
[2022-09-09] MEDS: ATORVASTATIN 10 MG TAB PO SCH (19:41)
[2022-09-10 05:39] VITALS: BP 106/42; TEMP 97.5; O2SAT 98
[2022-09-10] MEDS: TORSEMIDE 10 MG TABLET PO SCH (08:58)
[2022-09-10] MEDS: ASPIRIN 81MG CHEW TABLET PO SCH (08:58)
[2022-09-10] MEDS: DOCUSATE SODIUM 100MG CAPSULE PO SCH ×3 (08:58→21:00)
[2022-09-10] MEDS: ENOXAPARIN 40MG/0.4ML SYRINGE (J1650 PER 10MG) SC SCH (08:59)
[2022-09-10] MEDS: NYSTATIN 100,000 UNITS/GM TOPICAL PWD 15GM TOP SCH ×2 (08:59→21:00)
[2022-09-10] MEDS: MIRALAX *UNIT DOSE* 17GM PACKET PO SCH (08:59)
[2022-09-10] MEDS: FLUoxetine 20MG CAP PO SCH (08:59)
[2022-09-10] MEDS: ramipriL 5 MG CAP PO SCH (09:00)
[2022-09-10] MEDS: ATORVASTATIN 10 MG TAB PO SCH (21:00)
[2022-09-11 05:00] VITALS: BP 123/50; TEMP 97.9; O2SAT 97
[2022-09-11] MEDS: ramipriL 5 MG CAP PO SCH (11:47)
[2022-09-11] MEDS: DOCUSATE SODIUM 100MG CAPSULE PO SCH ×3 (11:47→21:00)
[2022-09-11] MEDS: ASPIRIN 81MG CHEW TABLET PO SCH (11:47)
[2022-09-11] MEDS: NYSTATIN 100,000 UNITS/GM TOPICAL PWD 15GM TOP SCH ×2 (11:48→21:00)
[2022-09-11] MEDS: TORSEMIDE 10 MG TABLET PO SCH (11:48)
[2022-09-11] MEDS: MIRALAX *UNIT DOSE* 17GM PACKET PO SCH (11:48)
[2022-09-11] MEDS: ENOXAPARIN 40MG/0.4ML SYRINGE (J1650 PER 10MG) SC SCH (11:48)
[2022-09-11] MEDS: FLUoxetine 20MG CAP PO SCH (11:48)
[2022-09-11] MEDS: RIVAROXABAN 10MG TAB (XARELTO) PO SCH (17:16)
[2022-09-11 17:35] LABS: INR 0.91; PROTHROMBIN TIME 12.5 SECONDS (12.5-14.5)
[2022-09-11] MEDS: ATORVASTATIN 10 MG TAB PO SCH (21:00)
[2022-09-11] MEDS: RAMELTEON 8 MG TAB (ROZEREM) PO PRN (21:44)
[2022-09-12 04:50] VITALS: BP 117/63; TEMP 98.1; O2SAT 100
[2022-09-12] MEDS: MIRALAX *UNIT DOSE* 17GM PACKET PO SCH (11:12)
[2022-09-12] MEDS: ASPIRIN 81MG CHEW TABLET PO SCH (11:12)
[2022-09-12] MEDS: FLUoxetine 20MG CAP PO SCH (11:12)
[2022-09-12] MEDS: TORSEMIDE 10 MG TABLET PO SCH (11:12)
[2022-09-12] MEDS: ramipriL 5 MG CAP PO SCH (11:12)
[2022-09-12] MEDS: DOCUSATE SODIUM 100MG CAPSULE PO SCH ×3 (11:13→20:04)
[2022-09-12] MEDS: NYSTATIN 100,000 UNITS/GM TOPICAL PWD 15GM TOP SCH ×2 (11:13→20:06)
[2022-09-12] MEDS: RIVAROXABAN 10MG TAB (XARELTO) PO SCH (17:32)
[2022-09-12] MEDS: ATORVASTATIN 10 MG TAB PO SCH (20:05)
[2022-09-13 06:09] VITALS: BP 139/59; TEMP 97.9; O2SAT 98
[2022-09-13] MEDS: MIRALAX *UNIT DOSE* 17GM PACKET PO SCH (08:16)
[2022-09-13] MEDS: ramipriL 5 MG CAP PO SCH (08:17)
[2022-09-13] MEDS: TORSEMIDE 10 MG TABLET PO SCH (08:17)
[2022-09-13] MEDS: ASPIRIN 81MG CHEW TABLET PO SCH (08:17)
[2022-09-13] MEDS: FLUoxetine 20MG CAP PO SCH (08:17)
[2022-09-13] MEDS: DOCUSATE SODIUM 100MG CAPSULE PO SCH ×3 (08:17→20:10)
[2022-09-13] MEDS: NYSTATIN 100,000 UNITS/GM TOPICAL PWD 15GM TOP SCH ×2 (08:18→20:10)
[2022-09-13] MEDS ORDERED: MIRA1POW3 PO (14:16)
[2022-09-13] MEDS ORDERED: HYDR-3363 PO (14:16)
[2022-09-13] MEDS ORDERED: FLUO20CA22 PO (14:16)
[2022-09-13] MEDS: RIVAROXABAN 10MG TAB (XARELTO) PO SCH (17:40)
[2022-09-13] MEDS: ATORVASTATIN 10 MG TAB PO SCH (20:10)
[2022-09-14 06:30] VITALS: BP 108/45; TEMP 98.1; O2SAT 99
[2022-09-14] MEDS: ASPIRIN 81MG CHEW TABLET PO SCH (08:41)
[2022-09-14] MEDS: TORSEMIDE 10 MG TABLET PO SCH (08:41)
[2022-09-14] MEDS: MIRALAX *UNIT DOSE* 17GM PACKET PO SCH (08:41)
[2022-09-14] MEDS: FLUoxetine 20MG CAP PO SCH (08:43)
[2022-09-14] MEDS: DOCUSATE SODIUM 100MG CAPSULE PO SCH (08:43)
[2022-09-14] MEDS: NYSTATIN 100,000 UNITS/GM TOPICAL PWD 15GM TOP SCH (08:43)
[2022-09-14 08:45] VITALS: BP 118/68
[2022-09-14] MEDS: ramipriL 5 MG CAP PO SCH (08:45)
[2022-09-14 10:00] VITALS: BP 116/72; TEMP 97.7; O2SAT 99
== END 2022-09-14 13:20 ==
LOC: M ED 00:16 → M ED INP 15:48 → ENRESERV 16:20 → M MSPAV 17:35
PROVIDERS: ADMIT Internal Medicine; ATTEND Internal Medicine
DX: F03.93 Unspecified dementia, unspecified severity, with mood disturbance (principal); R54 Age-related physical debility; R82.71 Bacteriuria; R45.851 Suicidal ideations; F41.9 Anxiety disorder, unspecified; I25.10 Atherosclerotic heart disease of native coronary artery without angina pectoris; I10 Essential (primary) hypertension; Z88.0 Allergy status to penicillin; Z88.2 Allergy status to sulfonamides; Z88.8 Allergy status to other drugs, medicaments and biological substances; Z79.899 Other long term (current) drug therapy; Z79.82 Long term (current) use of aspirin
CPT/HCPCS: 36415; 80048; 80076; 80143; 80307; 81000; 81001; 81015; 82077; 82607; 82746; 84439; 84443; 85027; 85610; 86780; 87086; 87426; 87635; 93005; 96372; 97161; 97530; 99285; G0378; J1650